=== PATIENT | female | born 1975 | race Caucasian/White ===

== ENCOUNTER 2019-04-06 14:38 | Emergency (ER) | payer OTHER ==
[~2019-04-06] VITALS: Ht 180.3 cm; Wt 140.6 kg
[~2019-04-06 14:38] MED LIST: CEFADROXIL500 MG PO
[2019-04-06] MEDS ORDERED: SYNTHROID137 MCG (14:46)
== END 2019-04-06 19:54 | disposition home or self-care (01) ==
LOC: ER 14:38
DX: M94.0 Chondrocostal junction syndrome [Tietze] (principal)

== ENCOUNTER 2019-07-20 05:58 | Day surgery (SDC) | payer OTHER ==
[~2019-07-20 05:58] MED LIST changes: +SYNTHROID137 MCG
== END 2019-07-20 10:17 | disposition home or self-care (01) ==
LOC: AMB-ENDOS 05:58 → ADM 14:00
DX: D13.1 Benign neoplasm of stomach (principal); K44.9 Diaphragmatic hernia without obstruction or gangrene

== ENCOUNTER 2023-02-02 05:25 | Day surgery (SDC) | payer OTHER ==
[2023-01-30 11:24] LABS: HEMATOCRIT 34.9 % (36.0-45.00); HEMOGLOBIN 11.6 g/dL (12.0-15.00); MEAN CORPUSCULAR HEMOGLOBIN 30.4 pg (27.00-32.0); MEAN CORPUSCULAR HGB CONC 33.4 g/dl (32.0-36.0); PLATELET COUNT 315 K/uL (150-450); RED BLOOD COUNT 3.83 M/uL (4.00-6.00); RED CELL DISTRIBUTION WIDTH 13.6 % (11.5-14.5)
[2023-01-30 11:51] LABS: INR 0.97; PARTIAL THROMBOPLASTIN TIME 30.6 SECONDS (22.0-34.0); PROTHROMBIN TIME 10.2 SECONDS (9.0-11.5)
[2023-01-30 11:57] LABS: ALBUMIN 3.5 gm/dL (3.4-5.0); BILIRUBIN TOTAL 0.54 mg/dL (0.3-1.2); CALCIUM 8.8 mg/dL (8.5-10.1); CREATININE SERUM 0.63 mg/dL (0.55-1.02); GFR 102.19; GLOBULINA 3.5 G/DL (2.4-3.5); POTASSIUM 4.14 mEq/L (3.5-5.1)
[~2023-02-02] VITALS: Ht 180.3 cm; Wt 72.6 kg
[2023-02-02] MEDS ORDERED: HIBICLENS118 ML SPEPROC (16:03)
[2023-02-02] MEDS ORDERED: ZIPSOR25 MG PO (16:03)
== END 2023-02-02 16:10 | disposition home or self-care (01) ==
LOC: CIR.AMB 05:25
PROVIDERS: ATTEND Obstetrics & Gynecology
DX: N76.4 Abscess of vulva (principal); I10 Essential (primary) hypertension; E03.9 Hypothyroidism, unspecified; E78.00 Pure hypercholesterolemia, unspecified; Z20.822 Contact with and (suspected) exposure to COVID-19; Z88.6 Allergy status to analgesic agent